=== PATIENT | male | born 1985 ===

== ENCOUNTER 2018-08-22 13:27 | Emergency (ER) | payer OTHER ==
[2018-08-22 13:55] VITALS: BP 136/88; PULSE 71; RESP 16; TEMP 98.3; O2SAT 98
--- NOTE | 2018-08-22 15:24 | ED PDOC ---
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 Patient states he was at work when he fell down five steps. Patient claims his left ankle inverted and has been having trouble walking since, but able to. Patient denies any head injury or loss of consciousness. Denies numbness or tingling. Patient has not taking any medication for relief. PCP: None Provided Past Medical History Reviewed: Historical Data, Nursing Documentation, Vital Signs Vital Signs: Last Vital Signs Temp 98.3 F 08/22/18 13:54 Pulse 71 08/22/18 13:54 Resp 16 08/22/18 13:54 BP 136/88 08/22/18 13:54 Pulse Ox 98 08/22/18 13:54 - Medical History PMH: No Chronic Diseases - Surgical History Surgical History: No Surg Hx - Family History Family History: States: No Known Family Hx - Home Medications Home Medications: Ambulatory Orders Medication Instructions Recorded Ibuprofen [Motrin Tab] 600 mg PO Q6 PRN #20 tab 08/22/18 - Allergies Allergies/Adverse Reactions: Allergies Allergy/AdvReac Type Severity Reaction Status Date / Time No Known Allergies Allergy Verified 08/22/18 13:53 Review of Systems ROS Statement: Except As Marked, All Systems Reviewed And Found Negative Musculoskeletal: Positive for: Foot Pain (left; and ankle pain). Negative for: Other (Head Injury) Neurological: Negative for: Other (Loss of Consciousness) Physical Exam - Reviewed Nursing Documentation Reviewed: Yes Vital Signs Reviewed: Yes - Physical Exam Comments: GENERAL APPEARANCE: Patient is awake, alert, oriented x 3, in no acute distress. SKIN: Warm, dry; (-) cyanosis. CHEST AND RESPIRATORY: (-) chest wall tenderness. Lungs: (-) rales, (-) rhonchi, (-) wheezes; breath sounds equal bilaterally. HEART AND CARDIOVASCULAR: Regular rate and rhythm. (-) irregularity; (-) murmur, (-) gallop. EXTREMITY: Dorsi flexion causes pain, mild tenderness to left medial ankle, anterior ankle and top of foot (+)mild swelling (-)lateral or medial malleolus tenderness ; (-) abrasion, (-) obvious deformity (+) neurovascularly intact; cap refill less than 2 seconds; dp pulses 2+ NEURO AND PSYCH: Mental status as above. - ECG O2 Sat by Pulse Oximetry: 98 (RA) Pulse Ox Interpretation: Normal Medical Decision Making Medical Decision Making: Time: 1426 Impression: Left Foot and Ankle Injury s/p Fall Plan: Ibuprofen 600 mg PO Ankle Left 3 Views Routine [Rad] Foot Left 3 Views Routine [Rad] Time: 1553 Left Foot FINDINGS: BONES: Normal. No fracture. JOINTS: Normal. SOFT TISSUES: Normal. OTHER FINDINGS: None. IMPRESSION: Normal left foot radiographs. Time: 1553 Left Ankle FINDINGS: BONES: Normal. No fracture. JOINTS: Normal. No osteoarthritis. Ankle mortise maintained. Talar dome intact SOFT TISSUES: Normal. OTHER FINDINGS: None. IMPRESSION: Normal left ankle radiographs. Time: 1624 [facility] language line used [id number] Patient informed that his x-rays show no breaks or fractures. Patient informed he has a sprain. Will put liza wrap and surgical shoe for support. Patient advised to followup with job and with foot and ankle clinic here. Patient instructed to rest, ice, and elevate foot. Patient will be given Ibuprofen for pain and inflammation. Discussed results, diagnosis, treatment, return precautions and f/u with pt who is understanding, in agreement and stable for dc Scribe Attestation: Documented by Guille Gil, acting as a scribe for Milad May PA-C Provider Scribe Attestation: All medical record entries made by the Scribe were at my direction and personally dictated by me. I have reviewed the chart and agree that the record accurately reflects my personal performance of the history, physical exam, medical decision making, and the department course for this patient. I have also personally directed, reviewed, and agree with the discharge instructions and disposition. Disposition - Clinical Impression Clinical Impression: Strain of left ankle and foot, Ankle sprain and strain - Patient ED Disposition Is Patient to be Admitted: No Counseled Patient/Family Regarding: Studies Performed, Diagnosis, Need For Followup, Rx Given - Disposition Referrals: workers, comp [Other] Podiatry Clinic [Outside] Disposition: Routine/Home Disposition Time: 16:35 Condition: STABLE Additional Instructions: Eliel un seguimiento con la clnica de podologa o de compensacin de alfonso trabajadores david se indica. Descansa, hielo y eleva tu pie. Use nelly envoltura liza para la compresin y albarran para soporte. [place] ibuprofeno para el dolor. Ivan por dejarnos cuidar de ti hoy. Te trataron por un esguince de tobillo y pie. La atencin mdica de emergencia que recibi hoy se dirigi a alfonso sntomas agudos. Si le recetaron algn medicamento, llnelo y tmelo segn las indicaciones. Los sntomas pueden tardar varios curtis en resolverse. Regrese al Departamento de Emergencias si alfonso sntomas empeoran, no mejoran o si tiene o tros problemas. Comunquese con franks mdico dentro de 2 curtis para nelly nueva evaluacin y eliel un seguimiento o llame a will de los mdicos / clnicas a los que maher sido referido y que figuran en el formulario de Informacin de visita al paciente que se incluye en franks paquete de norma. Lleve todos los documentos que le entregaron al momento del norma junto con todos los medicamentos que est tomando para franks visita de seguimiento. Nuestro tratamiento no puede reemplazar la atencin mdica continua por parte de un proveedor de atencin primaria (PCP) fuera del departamento de emergencias. Prescriptions: Ibuprofen [Motrin Tab] 600 mg PO Q6 PRN #20 tab PRN Reason: Pain, Moderate (4-7) Instructions: Ankle Sprain (DC) Print Language: IVORIAN - POA Present On Arrival: None
--- NOTE | 2018-08-22 15:57 | RAD ---
Date of service: 08/22/2018 PROCEDURE: Left Ankle Radiographs. HISTORY: work injury COMPARISON: None available. TECHNIQUE: 3 views obtained. FINDINGS: BONES: Normal. No fracture. JOINTS: Normal. No osteoarthritis. Ankle mortise maintained. Talar dome intact SOFT TISSUES: Normal. OTHER FINDINGS: None. IMPRESSION: Normal left ankle radiographs.
--- NOTE | 2018-08-22 15:58 | RAD ---
Date of service: 08/22/2018 PROCEDURE: Left Foot Radiographs. HISTORY: work injury COMPARISON: None. TECHNIQUE: 3 views obtained. FINDINGS: BONES: Normal. No fracture. JOINTS: Normal. SOFT TISSUES: Normal. OTHER FINDINGS: None. IMPRESSION: Normal left foot radiographs.
== END 2018-08-22 16:39 | disposition home or self-care (01) ==
LOC: H.ER 13:27
DX: S96.912A Strain of unspecified muscle and tendon at ankle and foot level, left foot, initial encounter (principal); W10.9XXA Fall (on) (from) unspecified stairs and steps, initial encounter; Y99.0 Civilian activity done for income or pay